=== PATIENT | male | born 1970 | race Caucasian/White ===

== ENCOUNTER 2017-11-14 09:11 | Day surgery (SDC) | payer OTHER ==
[~2017-11-14] VITALS: Ht 180.3 cm; Wt 74.5 kg
[~2017-11-14 09:11] MED LIST: BUPIVACAINE LIPOSOME/PF INFIL ONE
[2017-11-14] MEDS ORDERED: CARV6.252 PO (10:02)
[2017-11-14] MEDS ORDERED: ELVI1TAB2 PO (10:02)
[2017-11-14] MEDS ORDERED: ISOS60TA36 PO (10:02)
[2017-11-14] MEDS ORDERED: ASPI-496 PO (10:02)
[2017-11-14] MEDS ORDERED: PRAS10TA4 PO (10:02)
[2017-11-14] MEDS ORDERED: LACTATED RINGERS 1,000 ML IV SCH (10:05)
[2017-11-14 10:26] VITALS: BP 124/87
[2017-11-14 10:30] LABS: BASOPHILS # (AUTO) 0.03 x10^3/uL (0-0.1); BASOPHILS % (AUTO) 0 % (0-1); EOSINOPHILS # (AUTO) 0.08 x10^3/uL (0-0.4); EOSINOPHILS % (AUTO) 1 % (1-7); LYMPHOCYTES # (AUTO) 1.63 x10^3/uL (1-3.4); LYMPHOCYTES % (AUTO) 25 % (22-44); MD NO; MEAN CORPUSCULAR HEMOGLOBIN 33.8 pg (27.5-34.5); MEAN CORPUSCULAR HGB CONC 34.5 g/dL (33.2-36.2); MEAN CORPUSCULAR VOLUME 97.8 fL (81-97); MEAN PLATELET VOLUME 7.6 fL (7.4-10.4); MONOCYTES # (AUTO) 0.45 x10^3/uL (0.2-0.8); MONOCYTES % (AUTO) 7 % (2-9); NEUTROPHILS # (AUTO) 4.26 x10^3/uL (1.8-6.8); NEUTROPHILS % (AUTO) 66 % (42-75); PLATELET COUNT 145 x10^3/uL (130-400); RED BLOOD COUNT 4.89 x10^6/uL (4.38-5.82); RED CELL DISTRIBUTION WIDTH 13.3 % (9.4-14.8)
[2017-11-14] MEDS ORDERED: MIDAZOLAM 1 MG/ML, 2ML ONE (10:34)
[2017-11-14] MEDS ORDERED: FENTANYL PF 100 MCG/2ML ONE (10:34)
[2017-11-14] MEDS ORDERED: ONDANSETRON 2MG/ML, 2ML ONE (10:34)
[2017-11-14] MEDS ORDERED: SUCCINYLCHOLINE 20 MG/ML, 10ML ONE (10:34)
[2017-11-14] MEDS ORDERED: DEXAMETHASONE 4 MG/ML, 1ML ONE ×2 (10:34)
[2017-11-14] MEDS ORDERED: PROPOFOL 10 MG/ML, 20ML ONE ×2 (10:34)
[2017-11-14 10:40] LABS: ALANINE AMINOTRANSFERASE 37 U/L (12-78); ANION GAP 7 mmol/L (5-15); CALCIUM 8.6 mg/dL (8.5-10.1); CHLORIDE 110 mmol/L (98-107); CREATININE 0.97 mg/dL (0.7-1.3)
[2017-11-14 10:43] LABS: ALKALINE PHOSPHATASE 69 U/L (45-117); BILIRUBIN,TOTAL 0.6 mg/dL (0.2-1.0); TOTAL PROTEIN 7.3 g/dL (6.4-8.2)
[2017-11-14] MEDS ORDERED: FENTANYL PF 100 MCG/2ML IV PRN (12:00)
[2017-11-14] MEDS ORDERED: PROMETHAZINE 25 MG/ML, 1ML IV PRN (12:00)
[2017-11-14] MEDS ORDERED: MIDAZOLAM 1 MG/ML, 2ML IV PRN (12:00)
[2017-11-14] MEDS ORDERED: METOPROLOL 1 MG/ML, 5ML IV PRN (12:00)
[2017-11-14] MEDS ORDERED: ACETAMINOPHEN 325 MG TABLET PO PRN (12:00)
[2017-11-14] MEDS ORDERED: EPHEDRINE 50 MG/ML, 1ML IVPush PRN (12:00)
[2017-11-14] MEDS ORDERED: DIAZEPAM 5 MG/ML, 2ML IVPush PRN (12:00)
[2017-11-14] MEDS ORDERED: OXYcodone 5 MG/5 ML ORAL.SOL UDC PO PRN (12:00)
[2017-11-14] MEDS ORDERED: LORazepam 2 MG/ML, 1ML IVPush PRN (12:00)
[2017-11-14] MEDS ORDERED: ONDANSETRON 2MG/ML, 2ML IVPush PRN (12:00)
[2017-11-14] MEDS ORDERED: hydrALAzine 20 MG/ML, 1ML IV PRN (12:00)
[2017-11-14] MEDS ORDERED: ALBUTEROL/IPRATROPIUM 2.5MG/0.5MG, 3 ML NPPB PRN (12:00)
[2017-11-14] MEDS ORDERED: HYDROmorphone 1 MG/ML, 1ML IV PRN (12:00)
[2017-11-14] MEDS ORDERED: ACETAMINOPHEN 650 MG/20.3 ML UDC ONE (12:29)
[2017-11-14] MEDS ORDERED: OXYcodone 5 MG/5 ML ORAL.SOL UDC ONE (12:30)
== END 2017-11-14 14:25 ==
LOC: OUT 09:11
PROVIDERS: ATTEND Surgery
DX: K61.1 Rectal abscess (principal); E78.00 Pure hypercholesterolemia, unspecified; I25.10 Atherosclerotic heart disease of native coronary artery without angina pectoris; B20 Human immunodeficiency virus [HIV] disease; Z87.39 Personal history of other diseases of the musculoskeletal system and connective tissue; Z98.890 Other specified postprocedural states; Z79.82 Long term (current) use of aspirin; Z72.89 Other problems related to lifestyle; Z87.891 Personal history of nicotine dependence; Z88.8 Allergy status to other drugs, medicaments and biological substances
CPT/HCPCS: 36415; 46040; 80053; 85025; 93005; J0330; J1100; J2250; J2405; J2704; J3010; J7120; C9290

== ENCOUNTER 2017-12-04 10:20 | Inpatient (IN) | payer OTHER ==
[~2017-12-04] VITALS: Ht 182.9 cm; Wt 69.1 kg
[~2017-12-04 10:20] MED LIST changes: +ASPI-496 PO; -BUPIVACAINE LIPOSOME/PF INFIL ONE; +CARV6.252 PO; +ELVI1TAB2 PO; +ISOS60TA36 PO; +PRAS10TA4 PO
[2017-12-04] MEDS ORDERED: morphine SULFATE 10 MG/ML, 1ML ONE (10:54)
[2017-12-04] MEDS: morphine SULFATE 10 MG/ML, 1ML IVPush PRN ×4 (10:59→22:07)
[2017-12-04] MEDS ORDERED: PLEASE ENTER HEIGHT AND WEIGHT MC SCH (11:00)
[2017-12-04] MEDS ORDERED: ONDANSETRON 2MG/ML, 2ML ONE ×2 (11:01→19:21)
[2017-12-04] MEDS: ONDANSETRON 2MG/ML, 2ML IV PRN (11:05)
[2017-12-04] MEDS ORDERED: OMNIPAQUE 350 MG/ML, 100ML BOTTLE ONE (11:20)
[2017-12-04 11:21] VITALS: BP 116/75
[2017-12-04 12:54] VITALS: BP 116/75
[2017-12-04] MEDS ORDERED: NITR0.6T4 SL (13:12)
[2017-12-04] MEDS: OXYcodone IR 5MG TABLET PO PRN ×2 (13:58→22:08)
[2017-12-04] MEDS: D5%-0.45NACL+KCL 20MEQ 1,000 ML IV SCH ×3 (13:58→22:02)
[2017-12-04] MEDS: PIPERACILLIN/TAZO/PMX 3.375GM 50 ML IV SCH ×2 (13:58→22:02)
[2017-12-04 15:45] VITALS: BP 110/62
[2017-12-04] MEDS: CARVEDILOL 6.25 MG TABLET PO SCH (18:00)
[2017-12-04] MEDS ORDERED: FENTANYL PF 250 MCG/5ML ONE (18:41)
[2017-12-04] MEDS ORDERED: MIDAZOLAM 1 MG/ML, 2ML ONE (18:41)
[2017-12-04] MEDS ORDERED: ACETAMINOPHEN 325 MG TABLET PO PRN (19:00)
[2017-12-04] MEDS ORDERED: hydrALAzine 20 MG/ML, 1ML IV PRN (19:00)
[2017-12-04] MEDS ORDERED: MEPERIDINE/PF 25MG/0.5ML IVPush PRN (19:00)
[2017-12-04] MEDS ORDERED: DIAZEPAM 5 MG/ML, 2ML IVPush PRN (19:00)
[2017-12-04] MEDS ORDERED: LORazepam 2 MG/ML, 1ML IVPush PRN (19:00)
[2017-12-04] MEDS ORDERED: PROMETHAZINE 25 MG/ML, 1ML IV PRN (19:00)
[2017-12-04] MEDS ORDERED: FENTANYL PF 100 MCG/2ML IV PRN (19:00)
[2017-12-04] MEDS ORDERED: HYDROmorphone 1 MG/ML, 1ML IV PRN (19:00)
[2017-12-04] MEDS ORDERED: MIDAZOLAM 1 MG/ML, 5ML IV PRN (19:00)
[2017-12-04] MEDS ORDERED: OXYcodone 5 MG/5 ML ORAL.SOL UDC PO PRN (19:00)
[2017-12-04] MEDS ORDERED: ALBUTEROL/IPRATROPIUM 2.5MG/0.5MG, 3 ML NPPB PRN (19:00)
[2017-12-04] MEDS ORDERED: METOPROLOL 1 MG/ML, 5ML IV PRN (19:00)
[2017-12-04] MEDS ORDERED: ONDANSETRON 2MG/ML, 2ML IVPush PRN (19:00)
[2017-12-04] MEDS ORDERED: DEXAMETHASONE 4 MG/ML, 1ML ONE (19:21)
[2017-12-04] MEDS ORDERED: PROPOFOL 10 MG/ML, 20ML ONE (19:21)
[2017-12-04] MEDS ORDERED: CEFAZOLIN 1,000 MG ONE (19:21)
[2017-12-04] MEDS ORDERED: SUCCINYLCHOLINE 20 MG/ML, 10ML ONE (19:22)
[2017-12-04] MEDS: STRIBILD PO SCH (19:30)
[2017-12-04] MEDS ORDERED: FENTANYL PF 100 MCG/2ML ONE (19:47)
[2017-12-04] MEDS ORDERED: OXYcodone 5 MG/5 ML ORAL.SOL UDC ONE (19:47)
[2017-12-04] MEDS ORDERED: ACETAMINOPHEN 650 MG/20.3 ML UDC ONE (19:47)
[2017-12-04] MEDS ORDERED: MEPERIDINE/PF 50 MG/ML ONE (19:58)
[2017-12-05 03:26] VITALS: BP 104/68
[2017-12-05] MEDS: morphine SULFATE 10 MG/ML, 1ML IVPush PRN ×4 (04:30→20:43)
[2017-12-05 05:34] LABS: BASOPHILS # (AUTO) 0.01 x10^3/uL (0-0.1); BASOPHILS % (AUTO) 0 % (0-1); EOSINOPHILS % (AUTO) 0 % (1-7); LYMPHOCYTES % (AUTO) 9 % (22-44); MD NO; MEAN CORPUSCULAR HEMOGLOBIN 33.6 pg (27.5-34.5); MEAN CORPUSCULAR HGB CONC 34.5 g/dL (33.2-36.2); MEAN CORPUSCULAR VOLUME 97.2 fL (81-97); MEAN PLATELET VOLUME 7.4 fL (7.4-10.4); MONOCYTES # (AUTO) 0.15 x10^3/uL (0.2-0.8); MONOCYTES % (AUTO) 2 % (2-9); NEUTROPHILS # (AUTO) 9.09 x10^3/uL (1.8-6.8); NEUTROPHILS % (AUTO) 90 % (42-75); PLATELET COUNT 166 x10^3/uL (130-400); RED BLOOD COUNT 4.78 x10^6/uL (4.38-5.82); RED CELL DISTRIBUTION WIDTH 12.7 % (9.4-14.8)
[2017-12-05 05:41] LABS: CHLORIDE 102 mmol/L (98-107)
[2017-12-05 05:50] LABS: ALBUMIN 3.7 g/dL (3.4-5.0); ANION GAP 8 mmol/L (5-15); CALCIUM 9.7 mg/dL (8.5-10.1); CREATININE 1.25 mg/dL (0.7-1.3)
[2017-12-05] MEDS: D5%-0.45NACL+KCL 20MEQ 1,000 ML IV SCH (06:13)
[2017-12-05] MEDS: PIPERACILLIN/TAZO/PMX 3.375GM 50 ML IV SCH ×3 (06:13→22:02)
[2017-12-05] MEDS: OXYcodone IR 5MG TABLET PO PRN ×3 (06:13→17:01)
[2017-12-05] MEDS: CARVEDILOL 6.25 MG TABLET PO SCH ×2 (06:15→17:39)
[2017-12-05 07:36] VITALS: BP 125/78
[2017-12-05] MEDS: ISOSORBIDE MONONITRATE ER 60 MG TABLET PO SCH (08:23)
[2017-12-05] MEDS: STRIBILD PO SCH (08:24)
[2017-12-05] MEDS ORDERED: ELVI1TAB2 PO (08:27)
[2017-12-05] MEDS: ONDANSETRON 2MG/ML, 2ML IV PRN ×2 (09:11→17:41)
[2017-12-05] MEDS: PRASUGREL 10 MG TABLET PO SCH (10:45)
[2017-12-05] MEDS ORDERED: MORPHINE SULFATE 4 MG/ML, 1ML ONE (13:15)
[2017-12-05 13:25] VITALS: BP 124/72
[2017-12-05] MEDS ORDERED: DIPHENHYDRAMINE 25 MG CAPSULE PO PRN (17:30)
[2017-12-05] MEDS: DOCUSATE 100 MG CAPSULE PO PRN (17:39)
[2017-12-05 18:21] VITALS: BP 120/61
[2017-12-05] MEDS: ZOLPIDEM 5MG TABLET PO PRN (20:49)
[2017-12-06 01:44] VITALS: BP 117/62
[2017-12-06] MEDS: morphine SULFATE 10 MG/ML, 1ML IVPush PRN (04:29)
[2017-12-06] MEDS: ONDANSETRON 2MG/ML, 2ML IV PRN ×2 (04:32→17:20)
[2017-12-06] MEDS: D5%-0.45NACL+KCL 20MEQ 1,000 ML IV SCH (06:07)
[2017-12-06] MEDS: CARVEDILOL 6.25 MG TABLET PO SCH ×2 (06:09→17:19)
[2017-12-06] MEDS: PIPERACILLIN/TAZO/PMX 3.375GM 50 ML IV SCH (06:10)
[2017-12-06 07:16] VITALS: BP 112/69
[2017-12-06] MEDS: PRASUGREL 10 MG TABLET PO SCH (08:44)
[2017-12-06] MEDS: CIPROFLOXACIN 500 MG TABLET PO SCH ×2 (08:44→21:27)
[2017-12-06] MEDS: ISOSORBIDE MONONITRATE ER 60 MG TABLET PO SCH (08:44)
[2017-12-06] MEDS: SODIUM CHLORIDE FLUSH 3ML SYRINGE IVF SCH ×2 (08:45→21:24)
[2017-12-06] MEDS: metroNIDAZOLE 500 MG TABLET PO SCH ×2 (08:45→17:10)
[2017-12-06] MEDS: OXYcodone IR 5MG TABLET PO PRN ×4 (08:47→21:26)
[2017-12-06 14:00] VITALS: BP 115/67
[2017-12-06] MEDS: DOCUSATE 100 MG CAPSULE PO PRN (17:20)
[2017-12-06 19:47] VITALS: BP 129/79
[2017-12-06] MEDS: ZOLPIDEM 5MG TABLET PO PRN (21:27)
[2017-12-07] MEDS: OXYcodone IR 5MG TABLET PO PRN ×2 (01:44→06:16)
[2017-12-07] MEDS: metroNIDAZOLE 500 MG TABLET PO SCH ×2 (01:44→09:47)
[2017-12-07 02:00] VITALS: BP 122/70
[2017-12-07 05:33] LABS: ANION GAP 4 mmol/L (5-15); CHLORIDE 107 mmol/L (98-107)
[2017-12-07 05:35] LABS: CREATININE 1.04 mg/dL (0.7-1.3)
[2017-12-07 05:36] LABS: BASOPHILS # (AUTO) 0.02 x10^3/uL (0-0.1); BASOPHILS % (AUTO) 0 % (0-1); EOSINOPHILS # (AUTO) 0.01 x10^3/uL (0-0.4); EOSINOPHILS % (AUTO) 0 % (1-7); LYMPHOCYTES # (AUTO) 1.39 x10^3/uL (1-3.4); LYMPHOCYTES % (AUTO) 17 % (22-44); MD NO; MEAN CORPUSCULAR HEMOGLOBIN 33.4 pg (27.5-34.5); MEAN CORPUSCULAR VOLUME 98.1 fL (81-97); MEAN PLATELET VOLUME 7.5 fL (7.4-10.4); MONOCYTES # (AUTO) 0.68 x10^3/uL (0.2-0.8); MONOCYTES % (AUTO) 9 % (2-9); NEUTROPHILS # (AUTO) 5.88 x10^3/uL (1.8-6.8); NEUTROPHILS % (AUTO) 74 % (42-75); PLATELET COUNT 178 x10^3/uL (130-400); RED BLOOD COUNT 4.46 x10^6/uL (4.38-5.82); RED CELL DISTRIBUTION WIDTH 13.1 % (9.4-14.8)
[2017-12-07] MEDS: CARVEDILOL 6.25 MG TABLET PO SCH (06:16)
[2017-12-07 07:26] VITALS: BP 137/82
[2017-12-07] MEDS: STRIBILD PO SCH (09:00)
[2017-12-07] MEDS: SODIUM CHLORIDE FLUSH 3ML SYRINGE IVF SCH (09:00)
[2017-12-07] MEDS: PRASUGREL 10 MG TABLET PO SCH (09:47)
[2017-12-07] MEDS: CIPROFLOXACIN 500 MG TABLET PO SCH (09:47)
[2017-12-07] MEDS: ISOSORBIDE MONONITRATE ER 60 MG TABLET PO SCH (09:47)
[2017-12-07] MEDS ORDERED: OXYC-302 PO (10:22)
[2017-12-07 11:20] VITALS: BP 135/80
== END 2017-12-07 11:20 | disposition home or self-care (01) | DRG 331 ==
LOC: 4NOR 10:20
PROVIDERS: ADMIT Surgery; ATTEND Surgery
PROC: 0D9P00Z Drainage of Rectum with Drainage Device, Open Approach (ICD-10-PCS; principal; 2017-12-06)
DX: K61.1 Rectal abscess (principal); F32.9 Major depressive disorder, single episode, unspecified; G40.909 Epilepsy, unspecified, not intractable, without status epilepticus; I25.10 Atherosclerotic heart disease of native coronary artery without angina pectoris; Z88.8 Allergy status to other drugs, medicaments and biological substances
CPT/HCPCS: 36415; 74177; 80048; 82040; 85025; 87070; 87075; 87205; J0690; J1100; J2175; J2250; J2405; J2543; J2704; J3010; Q9967; J0330; J2270; J3480